=== PATIENT | male | born 1990 | race Caucasian/White ===

== ENCOUNTER 2021-09-26 18:57 | Emergency (ER) | payer BC, MEDICAID, SELFPAY ==
[2021-09-26 19:34] VITALS: PULSE 69; RESP 16; TEMP 36.8; O2SAT 99
--- NOTE | 2021-09-26 22:15 | W.ED.DENTAL ---
HPI - Dental/Oral General: Chief complaint: Dental/Oral Stated complaint: Left Side Mouth Exposed Nerves Time Seen by Provider: 09/26/21 22:05 History of Present Illness: Patient is a 30-year-old male who comes to the ED with dental pain. Patient says symptoms started approximately 4 days ago. Pain is located on the top and bottom left molars--teeth #15, 16, 17 and 18. Patient rates pain currently a 12 out of 10. He says he has taken Tylenol at home and it is not done enough to help with the pain. He tried calling dentist office today but they were all closed due to weather. He is going to continue calling dental offices to get set up with an appointment. Associated symptoms: Denies fever(s) or odynophagia Review of Systems Const: Denies: fever(s), chills or fatigue Eyes: Denies: change in vision or eye discomfort ENMT: Reports: dental pain; Denies: throat pain, odynophagia, nasal discharge or nasal congestion Card: Denies: chest pain, palpitations, edema, swelling of feet/ankles, dyspnea on exertion or orthopnea Resp: Denies: dyspnea, productive cough or non-productive cough GI: Denies: abdominal pain, nausea, vomiting, diarrhea, constipation or hematochezia : Denies: flank pain, difficulty urinating, dysuria or hematuria Musc: Denies: neck pain, back pain or extremity swelling Skin/Breast: Denies: rash or new lesions Neuro: Denies: headache(s) PFS ED PFSH: Medical History No pertinent family history No pertinent past medical history Surgical History No pertinent past surgical history Physical Exam Const: COMMON NORMALS: patient oriented x3, healthy appearing and alert HENMT: COMMON NORMALS: normocephalic HEAD & SCALP: normocephalic MOUTH: Normal oral and palatal mucosa present TEETH & GINGIVA: Yes abnormal tooth and associated gingiva lower left second molar tender and with associated gingival edema, Yes caries and Yes poor dentition THROAT: posterior oropharynx normal and uvula midline Neck/C-Spine: COMMON NORMALS: supple GENERAL: Yes normal visual inspection Resp: COMMON NORMALS: normal respiratory effort, No retractions, No use of accessory muscles and clear to auscultation bilaterally AUSCULTATION: clear to auscultation bilaterally Cardio: COMMON NORMALS: regular rate, regular rhythm, S1 normal heart sound present, S2 normal heart sound present, No gallops present (Cardio), No clicks present (Cardio), No murmurs present (Cardio) and Peripheral pulses 2+ throughout RATE: regular rate RHYTHM: regular rhythm HEART SOUNDS: S1 normal heart sound present and S2 normal heart sound present PERIPHERAL PULSES: Peripheral pulses 2+ throughout GI: COMMON NORMALS: Normal to inspection, nondistended, normoactive bowel sounds present, Soft to palpation, non-tender and no masses PALPATION: Yes Soft to palpation : COMMON NORMALS: Yes no CVA tenderness BLADDER/KIDNEY EXAM: Yes no CVA tenderness Back/Pelvis: COMMON NORMALS: no CVA tenderness Extremity: COMMON NORMALS: normal to inspection Neuro: COMMON NORMALS: patient oriented x3 and moves all extremities SENSORIUM/ORIENTATION: Yes alert Skin: GENERAL SKIN EXAM: dry skin Course Vital Signs: Vital signs: Vital Signs Temperature 98.2 F 09/26/21 19:34 Pulse Rate 69 09/26/21 19:34 Respiratory Rate 16 09/26/21 19:34 Pulse Oximetry 99 09/26/21 19:34 MDM - Dental/Oral Medical Decision Making Patient is a 30-year-old male comes to the ED with dental pain. Vitals are stable and patient appears in no acute distress. Patient has poor dental health with extensive dental caries throughout mouth. Extensive dental decay on back bottom left molars. Patient was given a dose of hydrocodone for pain while here in the ED and clindamycin. He was told to contact dentist to get appointment set up with them for follow-up as soon as possible. He was discharged home with a prescription for clindamycin and Celebrex for pain. Return to ED precautions given. Patient understood and agree with plan. Discharge Plan Discharge Patient Disposition: Home Clinical Impression: Pain due to dental caries Condition: Stable Prescriptions: New clindamycin HCl 150 mg capsule 300 mg PO QID 7 Days Qty: 56 0RF Celebrex 100 mg capsule 100 mg PO BID PRN (Reason: pain) Qty: 20 0RF Discharge Orders: Discharge ED (Routine); Ordered 09/26/21 Ordered By: Julius Awan Discharge Diet: Regular Discharge Activity: Increase activity as tolerated Patient Instructions: Dental Caries (Cavities) Activity Restrictions/Additional Instructions: Follow-up with a dentist to have dental pain evaluated as soon as possible. Take medications as prescribed. Return to the ER or your medical provider if condition worsens. Please read and understand discharge instructions. Thank you for choosing [facility] for your healthcare needs today. Please realize this is an emergency room and that we are providing you with a medical screening exam and this may not be complete and all inclusive of all the testing and or work up that you may need to determine your ailment or severity of your illness. It is very important that you follow up as instructed or that you return to the Emergency Department should you have concerns or if your condition changes or worsens in any way. Coding Level of Care Code ED Clinic Business Manager for [facility] Exam Comprehensive
[2021-09-26] MEDS: clindamycin 150 mg Capsule 300 MG PO (22:37)
[2021-09-26] MEDS: HYDROcodone-acetaminophen 7.5-325 mg Tablet 1 TAB PO (22:37)
[2021-09-26 23:10] VITALS: PULSE 65; RESP 16; O2SAT 98
== END 2021-09-26 23:12 | disposition home or self-care (01) ==
PROVIDERS: Emergency Provider Physician Assistant
DX: K02.9 Dental caries, unspecified (principal)
CPT/HCPCS: 99283